=== PATIENT | male | born 1945 | race Caucasian/White ===

== ENCOUNTER → 2017-10-05 | Outpatient (CLI) | payer MEDICARE, OTHER ==
[~2017-10-05] MED LIST: 0.9 % Sodium Chloride IVF; ACET325T14 PO; ALBU18HF INH; ALBU2.5V11 NEB; ALBU5SOL6 INH; ALBU8.5H5 INH; ALPR0.25 PO; ASPI-496 PO; AZIT500T PO; BISA10SU65 PR; BUDE0.5A INH; BUDE10.2 INH; CALC200T3 PO; CEFD300C37 PO; CLON-364 PO; CLON0.5T20 PO; DIAZ2TAB PO; ENOX40SY4 SQ; ESCI20TA10 PO; FOLI1TAB8 PO; FORM1POW3 INH; FURO-92 PO; FURO20TA3 PO; GUAI-103 PO; GUAI200T3 PO; GUAI600T31 PO; Hydrocodone Bit/Acetaminophen PO; Ipratropium/Albuterol Sulfate NPPB; LORA2VIA4 IVPush; METH40VI IVPush; MORP5VIA IVP; MULT-257 PO; NIAC500C3 PO; NIAC500T4 PO; OXYGEN; Ondansetron IVP; POLY17PO5 PO; POTA20PA PO; PRED10TA PO; PRED10TA14 PO; ROFL500T PO; TIOT18CA INH; [UNRECOGNIZED DRUG - CODE] PO; [UNRECOGNIZED DRUG - OTHER]; azithromycin IV; rocephin IV
== END | disposition home or self-care (01) ==
LOC: CFH 12:52
PROVIDERS: ATTEND Internal Medicine Critical Care Medicine
DX: J43.9 Emphysema, unspecified (principal); R91.1 Solitary pulmonary nodule; J96.10 Chronic respiratory failure, unspecified whether with hypoxia or hypercapnia
CPT/HCPCS: 71250

== ENCOUNTER → 2019-08-15 | Outpatient (CLI) | payer MEDICARE ==
[~2019-08-15] MED LIST changes: -CLON-364 PO; +CLON0.5T11 PO; -GUAI200T3 PO; +GUAI200T37 PO; -LORA2VIA4 IVPush; +LORA2VIA6 IVPush; -POTA20PA PO; +POTA20PA31 PO
== END | disposition home or self-care (01) ==
LOC: CFH 15:13
PROVIDERS: ATTEND Registered Nurse
DX: J96.10 Chronic respiratory failure, unspecified whether with hypoxia or hypercapnia (principal); R91.1 Solitary pulmonary nodule; J43.9 Emphysema, unspecified; D84.9 Immunodeficiency, unspecified; F17.211 Nicotine dependence, cigarettes, in remission
CPT/HCPCS: 71250

== ENCOUNTER → 2020-04-07 | Outpatient (CLI) | payer MEDICARE ==
[~2020-04-07] MED LIST changes: +CLON-364 PO; -CLON0.5T11 PO; +NIAC-17 PO; -NIAC500T4 PO
[2020-04-07 13:33] LABS: ANION GAP 5 mmol/L (5-15); CALCIUM 9.7 mg/dL (8.5-10.1); CHLORIDE 98 mmol/L (98-107); CREATININE 1.55 mg/dL (0.7-1.3)
== END | disposition home or self-care (01) ==
LOC: LAB 13:05
PROVIDERS: ATTEND Internal Medicine Cardiovascular Disease
DX: J84.10 Pulmonary fibrosis, unspecified (principal)
CPT/HCPCS: 36415; 80048